=== PATIENT | male | born 1990 | race Two or more races ===

== ENCOUNTER 2020-09-15 13:49 | Emergency (ER) | payer SELFPAY ==
[~2020-09-15] VITALS: Ht 180.3 cm; Wt 77.1 kg
[2020-09-15 14:11] VITALS: BP 125/86
== END 2020-09-15 16:59 | disposition home or self-care (01) ==
LOC: ER 13:49
DX: U07.1 COVID-19 (principal); F41.1 Generalized anxiety disorder
CPT/HCPCS: 36415; 87426